=== PATIENT | female | born 1955 | race Caucasian/White ===

== ENCOUNTER 2019-01-08 11:01 | Inpatient (IN) | payer BC ==
[2019-01-08] MEDS ORDERED: Albuterol 0.083% 2.5 MG/3 ML Neb Soln NEB PRN (12:16)
[2019-01-08] MEDS ORDERED: Polyethylene Glycol 3350 Powder 17 GM Packet PO PRN (12:16)
[2019-01-08] MEDS ORDERED: Ondansetron 4 MG/2 ML SDV IV PRN (12:16)
[2019-01-08] MEDS ORDERED: Acetaminophen 325 MG Tab PO PRN (12:16)
[2019-01-08] MEDS: Piperacillin/Tazobactam/Dext 3.375 GM in Premix Bag 1 BAG IV SCH ×3 (12:41→23:34)
[2019-01-08] MEDS ORDERED: Iopamidol 612 MG/ML 100 ML Bottle IV ONE (12:52)
[2019-01-08] MEDS ORDERED: Vancomycin 1 GM SDV IV SCH (13:00)
[2019-01-08] MEDS ORDERED: Nicotine Polacrilex 2 MG Gum CHEW PRN (13:57)
[2019-01-08] MEDS ORDERED: Sodium Chloride 0.9% 10 ML Syringe FLUSH PRN (14:32)
[2019-01-08] MEDS: Nicotine 21 MG/24 Hr Patch TRDERM SCH (14:45)
[2019-01-08] MEDS ORDERED: Iopamidol 612 MG/ML 100 ML Bottle IV SCH (14:45)
[2019-01-08] MEDS ORDERED: Sodium Chloride 0.9% 80 ML IV SCH (14:45)
[2019-01-08] MEDS: oxyCODONE 5 MG Tab PO PRN ×3 (15:13→23:34)
[2019-01-08] MEDS: Sodium Chloride 0.9% 75 ML IV SCH (15:22)
[2019-01-08] MEDS: Sodium Chloride 0.9% 10 ML Syringe FLUSH PRN (15:22)
--- NOTE | 2019-01-08 16:42 | CT ---
Chest w Cont CLINICAL HISTORY: Recurrent effusion, fever, dyspnea TECHNIQUE: Axial scans were obtained from the thoracic inlet to the lung bases following IV infusion of iodinated contrast. Auto dosage reduction and iterative reconstruction techniques employed. COMPARISON: 01/02/2019. FINDINGS: Patient has a small right pleural effusion which has diminished since the 01/03/2019 study. There is persistent the airspace disease versus the masslike density in the right perihilar region. There is some diffuse right the upper lobe reticular thickening. There is underlying COPD with some subpleural bleb formation. There is some compressive atelectasis in the right lung base. There is some pericarinal lymph nodes. Patient is a small ventral hernia. IMPRESSION: Decrease in right pleural effusion since prior study Improved aeration in the right lung base. There is persistent the mass or consolidation in the right perihilar region. Central lower attenuation could represent some necrosis
[2019-01-08] MEDS ORDERED: Ibuprofen Susp 100 MG/5 ML 5 ML UD Cup PO PRN (18:13)
--- NOTE | 2019-01-08 18:38 | PCM.HP.2 ---
H&P History of Present Illness - General Date of Service: 01/08/19 Admit Problem/Dx: Admission Diagnosis/Problem Admission Diagnosis/Problem Hypoxia Source of Information: Patient, Family, Old Records, Provider, RN Notes Reviewed History Limitations: Reports: No Limitations - History of Present Illness Initial Comments - Free Text/Narative: Ms. Dick is a 63-year-old woman who is admitted as a direct admission from the clinic with recurrent right pleural effusion, increased cough and shortness of breath. She was hospitalized at this facility last week with similar symptoms. At that time she was noted to have a large right pleural effusion and did undergo thoracentesis. Results from thoracentesis were consistent with a transudate, cultures were negative. It was felt likely that this was a parapneumonic effusion, she was encouraged to remain hospitalized for further IV antibiotic therapy but refused. She was discharged to home on a one-week course of oral levofloxacin. She did well until yesterday when she noted recurrent symptoms of shortness of breath right lateral chest pain and increase in cough. Chest x-ray obtained at the clinic shows recurrent pleural effusion with a modest elevation in white blood cell count. After admission here oxygenation is adequate on room air. CT scan of the chest does show small recurrent plural effusion, question of a perihilar mass versus infiltrate. - Related Data Allergies/Adverse Reactions: Allergies Allergy/AdvReac Type Severity Reaction Status Date / Time Sulfa (Sulfonamide Allergy Cannot Verified 01/08/19 11:49 Antibiotics) Remember metronidazole [From Flagyl] AdvReac Mild Dizziness Verified 01/08/19 11:49 Metronidazole HCl AdvReac Dizziness Verified 01/08/19 11:49 [From Flagyl] minocycline AdvReac Diaphoresis Verified 01/08/19 11:49 Home Medications: Home Meds Methimazole [Tapazole] 5 - 10 mg PO ASDIRECTED 01/01/13 [History] Calc/D3/Mag/Zn/[place] [Calcium 600 MG Plus Vit D] 1 each PO DAILY 01/02 [History] Levofloxacin 750 mg PO Q24H #7 tablet 01/03/19 [Rx] Past Medical History Other Respiratory History: HAS NOT HAD RESPIRATORY PROBLEMS UNTIL RECENTLY Gastrointestinal History: Reports: Diverticulosis [employer] History: Reports: Endocrine/Metabolic History: Reports: Hyperthyroidism Oncologic (Cancer) History: Reports: Basal Cell Carcinoma - Infectious Disease History Infectious Disease History: Reports: Chicken Pox, Measles - Past Surgical History Respiratory Surgical History: Reports: Thoracentesis GI Surgical History: Reports: Colon Social & Family History - Family History Family Medical History: Noncontributory - Tobacco Use Smoking Status *Q: Current Every Day Smoker Years of Tobacco use: 45 Packs/Tins Daily: 1 - Caffeine Use Caffeine Use: Reports: Coffee - Recreational Drug Use Recreational Drug Use: Yes H&P Review of Systems - Review of Systems: Review Of Systems: See Below General: Reports: Malaise, Weakness, Decreased Appetite. Denies: Fever, Chills HEENT: Reports: No Symptoms Pulmonary: Reports: Shortness of Breath, Cough. Denies: Wheezing, Pleuritic Chest Pain, Sputum, Hemoptysis Cardiovascular: Reports: Dyspnea on Exertion. Denies: Chest Pain, Palpitations , Orthopnea, PND, Edema, Lightheadedness, Syncope Gastrointestinal: Reports: No Symptoms Genitourinary: Reports: No Symptoms Musculoskeletal: Reports: No Symptoms Skin: Reports: No Symptoms Psychiatric: Reports: No Symptoms Neurological: Reports: Headache. Denies: Confusion, Dizziness, Numbness, Trouble Speaking, Difficulty Walking, Weakness Hematologic/Lymphatic: Reports: No Symptoms Immunologic: Reports: No Symptoms Exam - Exam Exam: See Below - Vital Signs Vital Signs: Last Vital Signs Temp 97.9 F 01/08/19 16:00 Pulse 85 01/08/19 11:50 Resp 23 H 01/08/19 16:00 BP 140/81 01/08/19 16:00 Pulse Ox 96 01/08/19 17:05 Weight: 138 lb - Exam Quality Assessment: DVT Prophylaxis. No: Supplemental Oxygen General: Alert, Oriented, Cooperative, Mild Distress HEENT: Conjunctiva Clear, Hearing Intact, Mucosa Moist & [place], Normal Nasal Septum, Posterior Pharynx Clear, Pupils Equal Neck: Supple, Trachea Midline, +2 Carotid Pulse wo Bruit Lungs: Decreased Breath Sounds (Right base), Rhonchi. No: Crackles, Rales, Wheezing Cardiovascular: Regular Rate, Regular Rhythm, Normal S1, Normal S2. No: Systolic Murmur, Diastolic Murmur GI/Abdominal Exam: Soft, Non-Tender, No Organomegaly, No Distention Back Exam: Normal Inspection, Full Range of Motion Extremities: Non-Tender, No Pedal Edema Skin: Warm, Dry, Intact Neurological: Cranial Nerves Intact, Strength Equal Bilateral, Normal Speech, Normal Tone, Sensation Intact Neuro Extensive - Mental Status: Alert, Oriented x3, Normal Mood/Affect, Normal Cognition, Memory Intact - Patient Data Lab Results Last 24 hrs: Laboratory Results - last 24 hr 01/08/19 01/08/19 Range/Units 12:52 12:52 WBC 10.6 (4.5-11.0) K/uL RBC 4.72 (3.30-5.50) M/uL Hgb 15.2 H (12.0-15.0) g/dL Hct 47.5 (36.0-48.0) % MCV 101 H (80-98) fL MCH 32 H (27-31) pg MCHC 32 (32-36) % Plt Count 397 (150-400) K/uL Neut % (Auto) 73 H (36-66) % Lymph % (Auto) 11 L (24-44) % [place] % (Auto) 14 H (2-6) % Eos % (Auto) 2 (2-4) % Baso % (Auto) 0 (0-1) % Sodium 142 (140-148) mmol/L Potassium 3.5 L (3.6-5.2) mmol/L Chloride 103 (100-108) mmol/L Carbon Dioxide 31 (21-32) mmol/L Anion Gap 11.5 (5.0-14.0) mmol/L BUN 12 (7-18) mg/dL Creatinine 0.6 (0.6-1.0) mg/dL Est Cr Clr Drug Dosing 94.84 mL/min Estimated GFR (MDRD) > 60 (>60) Glucose 94 (74-106) mg/dL Calcium 9.3 (8.5-10.1) mg/dL Magnesium 1.8 (1.8-2.4) mg/dL Total Bilirubin 0.2 D (0.2-1.0) mg/dL AST 18 (15-37) U/L ALT 21 (12-78) U/L Alkaline Phosphatase 102 (46-116) U/L C-Reactive Protein 6.63 H (0.0-0.3) mg/dL Total Protein 6.5 (6.4-8.2) g/dL Albumin 2.1 L (3.4-5.0) g/dL Globulin 4.4 H (2.3-3.5) g/dL Albumin/Globulin Ratio 0.5 L (1.2-2.2) Result Diagrams: 01/08/19 12:52 01/08/19 12:52 *Q Meaningful Use (ADM) - VTE *Q VTE Pharmacological Contraindications *Q: Patient Scheduled Surgery - VTE Risk Assess *Q Each Risk Factor Represents 1 Point: Serious lung disease including pneumonia Total Score 1 Point Risk Factors: 1 Each Risk Factor Represents 2 Points: Age 60 - 74 Years Total Score 2 Point Risk Factors: 2 Each Risk Factor Represents 3 Points: None Total Score 3 Point Risk Factors: 0 Each Risk Factor Represents 5 Points: None Total Score 5 Point Risk Factors: 0 Venous Thromboembolism Risk Factor Score *Q: 3 Problem List Initiated/Reviewed/Updated: Yes Orders Last 24hrs: Active Orders 24 hr Category Date Time Status Patient Status [ADT] Routine ADT 01/08/19 12:16 Active Ambulate [RC] QID Care 01/08/19 12:16 Active Cardiac Monitoring [RC] .As Directed Care 01/08/19 12:18 Active Height and Weight [RC] DAILY Care 01/08/19 12:16 Active Intake and Output [RC] QSHIFT Care 01/08/19 12:16 Active Notify Provider Consults [RC] ASDIRECTED Care 01/08/19 18:14 Active Notify Provider Vital Signs [RC] ASDIRECTED Care 01/08/19 12:16 Active Oxygen Therapy [RC] PRN Care 01/08/19 12:16 Active Pulse Oximetry [RC] CONTINUOUS Care 01/08/19 12:18 Active RT Aerosol Therapy [RC] ASDIRECTED Care 01/08/19 12:21 Active Up With Assistance [RC] ASDIRECTED Care 01/08/19 12:16 Active Up to Chair [RC] QID Care 01/08/19 12:16 Active VTE/DVT Education [RC] Per Unit Routine Care 01/08/19 12:16 Active Vital Signs [RC] Q4H Care 01/08/19 12:16 Active Consult to Physician [CONS] Routine Cons 01/08/19 18:13 Ordered Regular Diet [DIET] Diet 01/08/19 Lunch Active Brain w Cont [MR] Urgent Exams 01/09/19 08:00 Ordered US Guidance Thoracentesis NC [US] Urgent Exams 01/09/19 07:00 Ordered US Guidance Thoracentesis NC [US] Urgent Exams 01/09/19 07:00 Stop Req CULTURE BLOOD [BC] Stat Lab 01/08/19 12:52 Received CULTURE BLOOD [BC] Stat Lab 01/08/19 12:52 Received CULTURE RESPIRATORY + SMEAR [RM] Stat Lab 01/08/19 12:16 Ordered Acetaminophen [Tylenol] Med 01/08/19 12:16 Active 650 mg PO Q4H PRN Albuterol [Proventil Neb Soln] Med 01/08/19 12:16 Active 2.5 mg NEB Q4H PRN Ibuprofen [Motrin 100 MG/5 ML Susp] Med 01/08/19 18:13 Ordered 600 mg PO Q6H PRN Nicotine Polacrilex [Nicorelief] Med 01/08/19 13:57 Active 2 mg CHEW Q1H PRN Nicotine [Habitrol] Med 01/08/19 14:00 Active 21 mg TRDERM DAILY Ondansetron [Zofran] Med 01/08/19 12:16 Active 4 mg IV Q4H PRN Piperacillin/Tazobactam/Dext [Zosyn in Dextrose Iso- Med 01/08/19 12:30 Active Osmotic 3.375 GM] 3.375 gm Premix Bag 1 bag IV Q6H Polyethylene Glycol 3350 [MiraLAX] Med 01/08/19 12:16 Active 17 gm PO DAILY PRN Sodium Chloride 0.9% [Saline Flush] Med 01/08/19 12:16 Active 10 ml FLUSH ASDIRECTED PRN Vancomycin 1 gm Med 01/09/19 02:00 Active Sodium Chloride 0.9% [Normal Saline] 250 ml IV Q12H methIMAzole Med 01/09/19 09:00 Active 5 mg PO DAILY oxyCODONE Med 01/08/19 12:16 Active 5 mg PO Q4H PRN Blood Culture x2 Reflex Set [OM.PC] Stat Oth 01/08/19 12:21 Ordered Saline Lock Insert [OM.PC] Routine Oth 01/08/19 12:16 Ordered Sequential Compression Device [OM.PC] Per Unit Routine Oth 01/08/19 12:18 Ordered VTE Pharmacological Contraindications [AST] Per Unit Oth 01/08/19 12:16 Ordered Routine Resuscitation Status Routine Resus Stat 01/08/19 12:16 Ordered Medication Orders Acetaminophen (Tylenol) 650 mg PO Q4H PRN PRN Reason: Pain (Mild 1-3)/fever Albuterol (Proventil Neb Soln) 2.5 mg NEB Q4H PRN PRN Reason: Shortness Of Breath/wheezing Piperacillin/Tazobactam/ (Dextrose 3.375 gm/ Premix) 50 mls @ 100 mls/hr IV Q6H [facility] Last Admin: 01/08/19 12:41 Dose: 100 mls/hr Vancomycin HCl 1 gm/ Sodium (Chloride) 250 mls @ 167 mls/hr IV Q12H [facility] Ibuprofen (Motrin 100 Mg/5 Ml Susp) 600 mg PO Q6H PRN PRN Reason: Pain Methimazole (Methimazole) 5 mg PO DAILY [facility] Nicotine (Habitrol) 21 mg TRDERM DAILY [facility] Last Admin: 01/08/19 14:45 Dose: 21 mg Nicotine Polacrilex (Nicorelief) 2 mg CHEW Q1H PRN PRN Reason: Other Ondansetron HCl (Zofran) 4 mg IV Q4H PRN PRN Reason: Nausea/Vomiting Oxycodone HCl (Oxycodone) 5 mg PO Q4H PRN PRN Reason: Pain (moderate 4-6) Last Admin: 01/08/19 15:13 Dose: 5 mg Polyethylene Glycol (Miralax) 17 gm PO DAILY PRN PRN Reason: Constipation Sodium Chloride (Saline Flush) 10 ml FLUSH ASDIRECTED PRN PRN Reason: Keep Vein Open Last Admin: 01/08/19 15:22 Dose: 10 ml Assessment/Plan Comment:: ASSESSMENT AND PLAN RIGHT PLEURAL EFFUSION-associated with infiltrate versus mass right perihilar region. No significant fevers, normal white blood cell count. -Blood cultures pending -IV vancomycin and Zosyn, pending culture results -Ultrasound in a.m. to localize effusion -Consult Dr. Blackman for possible thoracentesis RIGHT LUNG PNEUMONIA VERSUS MASS -Management as above NEW HEADACHES-present for the past 2 weeks, no prior history of headaches -MRI of the brain with contrast MAINTENANCE ISSUES -DVT prophylaxis; scuds, hold on anticoagulation because of possible thoracentesis -GI prophylaxis; not indicated -Enrique catheter; not indicated -Nutrition; regular diet -Nicotine dependence; nicotine patch and gum as needed CODE STATUS-FULL CODE ADMISSION STATUS-patient will be admitted to inpatient status, expect at least a 2 night hospital stay for evaluation and management of problems as outlined above. At the time of this admission I do not reasonably expected evaluation and management of this problem will require more than a 96 hour hospital stay. DISPOSITION-anticipate discharge to home after the hospital stay. PRIMARY CARE PROVIDER-René Au - Mortality Measure Prognosis:: Good
[2019-01-08] MEDS: Codeine/guaiFENesin 100mg-10 MG/5 ML Syrup 10 ML Cup PO PRN (23:34)
[2019-01-09] MEDS: Ibuprofen 600 MG Tab PO PRN ×2 (04:00→12:34)
[2019-01-09] MEDS: Codeine/guaiFENesin 100mg-10 MG/5 ML Syrup 10 ML Cup PO PRN ×4 (04:00→20:08)
[2019-01-09] MEDS: Piperacillin/Tazobactam/Dext 3.375 GM in Premix Bag 1 BAG IV SCH ×3 (06:27→17:43)
[2019-01-09] MEDS: oxyCODONE 5 MG Tab PO PRN ×2 (06:29→20:07)
[2019-01-09] MEDS: Nicotine 21 MG/24 Hr Patch TRDERM SCH (08:51)
[2019-01-09] MEDS: Methimazole 5 MG Tab PO SCH (08:52)
[2019-01-09] MEDS ORDERED: HYDROmorphone 1 MG/ML Syringe IV ONE ×2 (09:00→14:00)
[2019-01-09] MEDS ORDERED: Potassium Chloride 20 MEQ Tab.ER PO ONE (10:00)
[2019-01-09] MEDS ORDERED: Gadoteridol 279.3 MG/ML 15 ML SDV IV SCH (12:00)
--- NOTE | 2019-01-09 12:08 | CRLMR ---
INDICATION: Headaches, possible lung mass. TECHNIQUE: Brain MRI with contrast. The following sequences were obtained: Sagittal T1 weighted sequence. DWI and ADC mapping sequences. Axial FLAIR and DIPTI T2 weighted sequences. GRE T2* sequence. Axial and coronal T1 weighted post-contrast sequences. 15 cc of ProHance gadolinium based contrast agent was used. COMPARISON: None. FINDINGS: No acute infarct or hemorrhage. No pathologic intracranial enhancement. Scattered small foci of T2 hyperintensity throughout the supratentorial white matter nonspecific but statistically most likely reflects chronic small vessel ischemic disease. No mass effect or herniation. No hydrocephalus or extra-axial collections. The pituitary gland, parasellar structures and optic chiasm are normal. Posterior fossa is normal. All the major intracranial vascular structures demonstrate normal flow-related signal. Tortuous vertebrobasilar system. The orbital contents are normal. No calvarial or skull base marrow signal abnormality. Heterogenous signal secretions throughout the right sphenoid sinus, with peripheral mucosal thickening. No extracranial soft tissue findings. IMPRESSION: 1. No acute intracranial abnormalities, including no evidence of acute infarction, intracranial hemorrhage or mass effect. 2. No mass or other finding to suggest intracranial metastatic disease. 3. Scattered chronic small vessel ischemic disease throughout the supratentorial white matter. 4. Heterogenous signal secretions throughout the right sphenoid sinus, with peripheral mucosal thickening. Dictated by Cash Mustafa MD @ Jan 09 2019 12:00PM Signed by Dr. Cash Mustafa @ Jan 09 2019 12:06PM
[2019-01-09] MEDS ORDERED: Iopamidol 612 MG/ML 100 ML Bottle IV ONE (14:04)
[2019-01-09] MEDS ORDERED: Sodium Chloride 0.9% 75 ML IV SCH (14:15)
[2019-01-09] MEDS: Sodium Chloride 0.9% 75 ML IV SCH (14:22)
[2019-01-09] MEDS: Sodium Chloride 0.9% 10 ML Syringe FLUSH PRN (14:22)
--- NOTE | 2019-01-09 14:56 | CRLCT ---
INDICATION: Follow-up of a thoracentesis. COMPARISON: CT chest 01/08/2019. TECHNIQUE: CT thoracic inlet through the adrenal glands obtained with IV contrast. Contrast: 100 cc of Isovue IV. Please note that all CT scans at this facility use dose modulation, iterative reconstruction, and/or weight-based dosing when appropriate to reduce radiation dose to as low as reasonably achievable. FINDINGS: Lungs: Paraseptal emphysematous changes are seen in both lung apices. Right middle lobe consolidation or mass is seen, measuring 5.4 x 4.9 centimeters. This is unchanged from the prior study. Moderate right-sided pleural effusion is not significantly changed from the prior study. Right lower lobe passive atelectasis is unchanged. Left lung is clear. Mediastinum: Heart size is normal. There is no evidence of right or left hilar adenopathy. Soft tissues: Bilateral breast implants are seen, with implant calcification. Bones: There is a compression fracture at the level of T6. Remaining vertebral body heights are maintained. Upper abdomen: Visualized portions of the liver, spleen, pancreas, and stomach are normal. IMPRESSION: 1. Moderate right-sided pleural effusion, overall no significant change from comparison chest CT 01/08/2019. 2. Large right middle lobe consolidation or mass. Differential diagnosis includes pneumonia and malignancy. CT-guided biopsy or short-term follow-up could be performed if clinically indicated. This is unchanged from the prior study. 3. Compression fracture T6. Remaining vertebral bodies demonstrate normal mineralization normal height. Please note that all CT scans at this facility use dose modulation, iterative reconstruction, and/or weight-based dosing when appropriate to reduce radiation dose to as low as reasonably achievable. Dictated by Eduardo Strange MD @ Jan 09 2019 2:43PM Signed by Dr. Eduardo Strange @ Jan 09 2019 2:53PM
--- NOTE | 2019-01-09 16:31 | HP ---
HISTORY OF PRESENT ILLNESS: Bharati is being seen for consultation in regard to her hypoxia. She will be needing a thoracentesis for a large right pleural effusion. She was admitted as a direct admit from the clinic for recurrent right pleural effusion, increased cough, and shortness of breath. She is seen in consultation at the request of Akbar Vargas MD. ALLERGIES: SULFA, FLAGYL, AND MINOCYCLINE. PAST MEDICAL HISTORY: Diverticulosis, hyperthyroidism, and basal cell carcinoma. PAST SURGICAL HISTORY: She has had a prior thoracentesis. FAMILY HISTORY: Noncontributory. Smokes 1 pack a day for 45 years. Drinks caffeine. REVIEW OF SYSTEMS: GENERAL: Reports weakness, decreased appetite. HEENT: Negative. LUNGS: Short of breath, cough. Has had no wheezing, chest pain. CARDIOVASCULAR: Short of breath on exertion. Denies any chest pain, shortness of breath. GI: Negative. : Negative. MUSCULOSKELETAL: No joint pain or swelling. SKIN: No rash. PSYCHIATRIC: No depression, anxiety, or insomnia. NEUROLOGIC: Reports headaches which are chronic. Denies any other symptoms. Remainder of review of systems negative for any pertinent positives and negatives. OBJECTIVE: GENERAL: Bharati Dick is a pleasant 63-year-old female. VITAL SIGNS: Height is 5 feet 10 inches, weight is 138 pounds. TPR is 96.8, 80, 20. Blood pressure 114/88. HEENT: Negative. NECK: Supple. HEART: Regular rate and rhythm. LUNGS: Revealed decreased breath sounds in the right. GI: Negative. Soft and nontender. EXTREMITIES: Without peripheral edema. NEUROLOGIC: Cranial nerves 2 through 12 intact. PSYCHIATRIC: Mood and affect appropriate. ASSESSMENT: 1. Right pleural effusion. 2. Right lung pneumonia versus mass. 3. New headaches. PLAN: Dr. Blackman to do thoracentesis. Case to follow at bedside. Dilaudid 1 mg IV prior to thoracentesis. We will evaluate p.r.n. or in a.m. Jessica Parks PA-C /[id number]
--- NOTE | 2019-01-09 20:00 | PCM.PN ---
- General Info Date of Service: 01/09/19 Subjective Update: Ms. Dick has been stable since admission, shortness of breath and cough have improved. Overall though she continues to feel fairly weak. No significant temperature elevations have been noted. Thoracentesis performed earlier today by Dr. Blackman resulted only small amount of fluid removed at 250 mL. Fungal and Gram stain's obtained and the fluid are negative. Follow-up CT scan obtained after thoracentesis unfortunately provided no new information. There is residual pleural fluid as well as mass versus infiltrate noted on previous CT scan. Functional Status: Reports: Tolerating Diet, Ambulating, Urinating - Review of Systems General: Reports: Weakness. Denies: Fever, Chills Pulmonary: Reports: Shortness of Breath, Cough. Denies: Pleuritic Chest Pain, Hemoptysis, Wheezing Cardiovascular: Reports: Dyspnea on Exertion. Denies: Chest Pain, Palpitations , Orthopnea, PND, Edema, Lightheadedness Gastrointestinal: Reports: No Symptoms - Patient Data Vitals - Most Recent: Last Vital Signs Temp 96.8 F 01/09/19 19:00 Pulse 75 01/09/19 19:00 Resp 16 01/09/19 19:00 BP 119/70 01/09/19 19:00 Pulse Ox 95 01/09/19 19:00 Weight - Most Recent: 136 lb 10.986 oz I&O - Last 24 Hours: Intake & Output 01/09/19 01/09/19 01/09/19 06:59 14:59 22:59 Intake Total 850 350 50 Output Total 350 Balance 850 0 50 Bakari Results Last 24 Hours: Microbiology 01/09/19 14:12 Gram Stain - Final Thoracentesis Fluid - Right 01/09/19 14:11 HAKAN Preparation - Final Other - Pleural Cavity, Unspecified 01/08/19 12:52 Aerobic Blood Culture - Preliminary Blood - Arm, Right NO GROWTH AFTER 1 DAY Anaerobic Blood Culture - Preliminary NO GROWTH AFTER 1 DAY 01/08/19 12:52 Aerobic Blood Culture - Preliminary Blood - Arm, Right NO GROWTH AFTER 1 DAY Anaerobic Blood Culture - Preliminary NO GROWTH AFTER 1 DAY Med Orders - Current: Current Medications Acetaminophen (Tylenol) 650 mg PO Q4H PRN PRN Reason: Pain (Mild 1-3)/fever Albuterol (Proventil Neb Soln) 2.5 mg NEB Q4H PRN PRN Reason: Shortness Of Breath/wheezing Guaifenesin/Codeine Phosphate (Robitussin Ac) 10 ml PO Q4H PRN PRN Reason: Cough Last Admin: 01/09/19 13:24 Dose: 10 ml Piperacillin/Tazobactam/ (Dextrose 3.375 gm/ Premix) 50 mls @ 100 mls/hr IV Q6H [facility] Last Admin: 01/09/19 17:43 Dose: 100 mls/hr Vancomycin HCl 1 gm/ Sodium (Chloride) 250 mls @ 167 mls/hr IV Q12H [facility] Last Admin: 01/09/19 14:51 Dose: 167 mls/hr Ibuprofen (Motrin) 600 mg PO Q6H PRN PRN Reason: Pain (moderate 4-6) Last Admin: 01/09/19 12:34 Dose: 600 mg Methimazole (Methimazole) 5 mg PO DAILY [facility] Last Admin: 01/09/19 08:52 Dose: 5 mg Nicotine (Habitrol) 21 mg TRDERM DAILY [facility] Last Admin: 01/09/19 08:51 Dose: 21 mg Nicotine Polacrilex (Nicorelief) 2 mg CHEW Q1H PRN PRN Reason: Other Ondansetron HCl (Zofran) 4 mg IV Q4H PRN PRN Reason: Nausea/Vomiting Oxycodone HCl (Oxycodone) 5 mg PO Q4H PRN PRN Reason: Pain (moderate 4-6) Last Admin: 01/09/19 06:29 Dose: 5 mg Polyethylene Glycol (Miralax) 17 gm PO DAILY PRN PRN Reason: Constipation Sodium Chloride (Saline Flush) 10 ml FLUSH ASDIRECTED PRN PRN Reason: Keep Vein Open Last Admin: 01/09/19 14:22 Dose: 10 ml Discontinued Medications Gadoteridol (Prohance) 15 ml IV .A DIRECTED [facility] Stop: 01/09/19 13:00 Last Admin: 01/09/19 11:46 Dose: 15 ml Hydromorphone HCl (Dilaudid) 1 mg IV ONCALL ONE Stop: 01/09/19 14:01 Last Admin: 01/09/19 15:41 Dose: Not Given Sodium Chloride (Normal Saline) 75 mls @ 3 mls/sec IV ASDIRECTED [facility] Stop: 01/08/19 13:01 Last Admin: 01/09/19 14:22 Dose: 3 mls/sec Vancomycin HCl 1.25 gm/ Sodium (Chloride) 250 mls @ 167 mls/hr IV ONETIME ONE Stop: 01/08/19 15:29 Last Admin: 01/08/19 14:41 Dose: 167 mls/hr Sodium Chloride (Normal Saline) 75 mls @ 3 mls/sec IV ASDIRECTED [facility] Stop: 01/09/19 14:16 Ibuprofen (Motrin 100 Mg/5 Ml Susp) 600 mg PO Q6H PRN PRN Reason: Pain Last Admin: 01/08/19 20:28 Dose: 600 mg Iopamidol (Isovue-300 (61%)) 100 ml IV . DIRECTED ONE Stop: 01/08/19 12:53 Last Admin: 01/08/19 15:23 Dose: 100 ml Iopamidol (Isovue-300 (61%)) 100 ml IV . DIRECTED ONE Stop: 01/09/19 14:05 Last Admin: 01/09/19 14:22 Dose: 100 ml Potassium Chloride (Klor-Con M20) 40 meq PO ONETIME ONE Stop: 01/09/19 10:01 Last Admin: 01/09/19 09:38 Dose: 40 meq Vancomycin HCl (Vancomycin) 1 gm IV .PHARMACY TO DOSE [facility] Stop: 01/08/19 13:01 - Exam Quality Assessment: Supplemental Oxygen, DVT Prophylaxis General: Alert, Oriented, Cooperative, Mild Distress Lungs: Clear to Auscultation, Normal Respiratory Effort, Decreased Breath Sounds (Right base) Cardiovascular: Regular Rate, Regular Rhythm, No Murmurs GI/Abdominal Exam: Soft, Non-Tender, No Organomegaly, No Distention Extremities: Non-Tender, No Pedal Edema - Problem List Review Problem List Initiated/Reviewed/Updated: Yes - My Orders Last 24 Hours: My Active Orders 01/08/19 20:39 Codeine/guaiFENesin [Robitussin AC] 10 ml PO Q4H PRN 01/08/19 20:41 Ibuprofen [Motrin] 600 mg PO Q6H PRN 01/09/19 02:00 Vancomycin 1 gm Sodium Chloride 0.9% [Normal Saline] 250 ml IV Q12H 01/09/19 07:00 US Guidance Thoracentesis NC [US] Urgent 01/09/19 09:00 methIMAzole 5 mg PO DAILY 01/09/19 14:11 CULTURE FUNGAL [MYC] Routine 01/10/19 05:11 POTASSIUM,K [CHEM] AM - Plan Plan:: ASSESSMENT AND PLAN RIGHT PLEURAL EFFUSION-associated with infiltrate versus mass right perihilar region. No significant fevers, normal white blood cell count. -Blood cultures pending -IV vancomycin and Zosyn, pending culture results -Plan for CT-guided needle biopsy of right lung mass RIGHT LUNG PNEUMONIA VERSUS MASS -Management as above NEW HEADACHES-present for the past 2 weeks, no prior history of headaches. MRI obtained today shows no evidence of mass or metastatic disease. MAINTENANCE ISSUES -DVT prophylaxis; scuds -GI prophylaxis; not indicated -Enrique catheter; not indicated -Nutrition; regular diet -Nicotine dependence; nicotine patch and gum as needed CODE STATUS-FULL CODE ADMISSION STATUS-patient will be admitted to inpatient status, expect at least a 2 night hospital stay for evaluation and management of problems as outlined above. At the time of this admission I do not reasonably expected evaluation and management of this problem will require more than a 96 hour hospital stay. DISPOSITION-anticipate discharge to home after the hospital stay. PRIMARY CARE PROVIDER-René Au
[2019-01-10] MEDS: Piperacillin/Tazobactam/Dext 3.375 GM in Premix Bag 1 BAG IV SCH ×3 (00:19→11:32)
[2019-01-10] MEDS: oxyCODONE 5 MG Tab PO PRN ×4 (00:29→13:07)
[2019-01-10] MEDS: Codeine/guaiFENesin 100mg-10 MG/5 ML Syrup 10 ML Cup PO PRN ×4 (00:29→13:07)
[2019-01-10] MEDS: Nicotine 21 MG/24 Hr Patch TRDERM SCH (08:09)
[2019-01-10] MEDS ORDERED: Methimazole 5 MG Tab PO SCH (09:30)
[2019-01-10] MEDS: Methimazole 5 MG Tab PO SCH (09:31)
[2019-01-10 11:35] VITALS: BP 117/63; PULSE 86
--- NOTE | 2019-01-10 12:13 | PCM.DCSUM1 ---
Discharge Summary - Hospital Course Brief History: Ms. Dick is a 63-year-old woman who was admitted as a direct admission from the walk-in clinic with increased shortness of breath, cough, and weakness secondary to right pleural effusion and right lung mass/infiltrate. - Discharge Data Discharge Date: 01/10/19 Discharge Disposition: Home, Self-Care 01 Condition: Fair - Referral to Home Health Primary Care Physician: René Au NP - Discharge Diagnosis/Problem(s) (1) Lung mass SNOMED Code(s): 655272729 ICD Code: R91.8 - OTHER NONSPECIFIC ABNORMAL FINDING OF LUNG FIELD Status: Acute Current Visit: Yes (2) S/P thoracentesis SNOMED Code(s): 159176410, 40287387, 564933417 ICD Code: Z98.890 - OTHER SPECIFIED POSTPROCEDURAL STATES Status: Acute Current Visit: No (3) Pneumonia involving right lung SNOMED Code(s): 378841002 ICD Code: J18.9 - PNEUMONIA, UNSPECIFIED ORGANISM Status: Acute Current Visit: No Qualifiers: Pneumonia type: due to unspecified organism Lung location: unspecified part of lung Qualified Code(s): J18.9 - Pneumonia, unspecified organism (4) Pleural effusion on right SNOMED Code(s): 11039369 ICD Code: J90 - PLEURAL EFFUSION, NOT ELSEWHERE CLASSIFIED Status: Acute Current Visit: No - Patient Summary/Data Consults: Consultations 01/08/19 18:13 Consult to Physician [CONS] Routine Consulting Provider: Ignacio Blackman Courtesy Call Completed to Consulting Physician: Yes Reason for Consult: R Pleural effusion Hospital Course: Ms. Dick is a 63-year-old woman who is admitted as a direct admission from the clinic with recurrent right pleural effusion, increased cough and shortness of breath. She was hospitalized at this facility last week with similar symptoms. At that time she was noted to have a large right pleural effusion and did undergo thoracentesis. Results from thoracentesis were consistent with a transudate, cultures were negative. It was felt likely that this was a parapneumonic effusion, she was encouraged to remain hospitalized for further IV antibiotic therapy but refused. She was discharged to home on a one-week course of oral levofloxacin. She did well until yesterday when she noted recurrent symptoms of shortness of breath right lateral chest pain and increase in cough. Chest x-ray obtained at the clinic shows recurrent pleural effusion with a modest elevation in white blood cell count. After admission here oxygenation is adequate on room air. CT scan of the chest does show small recurrent plural effusion, question of a perihilar mass versus infiltrate. On admission blood cultures were obtained and she was started on IV antibiotic therapy with vancomycin and Zosyn. She had no significant temperature elevations during the hospital stay and her white blood cell count did normalize from the mild elevation noted at the clinic. Surgical consult was obtained from Dr. Blackman and after ultrasound localization of the pleural effusion a thoracentesis was performed. 250 mL of somewhat bloody fluid were removed. Cultures from fluid were negative at the time of discharge. Follow-up CT scan of the chest was obtained after thoracentesis but showed no new or significant findings other than what had been noted previously. Did require use of oxygen during the hospital stay. On the day of discharge she had an oxygen saturation of 85% on room air. Home oxygen 2 L/m via nasal cannula will be ordered in addition to portable oxygen device. CT guided fine needle biopsy of the right lung mass will be scheduled as an outpatient, with follow-up with Dr. Blackman. Activity will be as tolerated and she will resume her usual diet. She will be discharged to home on an additional 5 days of oral antibiotic therapy with Omnicef and doxycycline. Probiotic therapy will also be ordered twice daily. She notes increasing shortness of breath or cough she will present to the emergency department for further evaluation. - Patient Instructions Diet: Usual Diet as Tolerated Activity: As Tolerated Other/Special Instructions: Arrange for home oxygen 2 L/m via nasal cannula with portable oxygen device. Please schedule CT directed fine-needle biopsy of right lung mass for January 15. Please schedule follow-up appointment with Dr. Blackman 2-3 days following lung biopsy. - Discharge Plan *PRESCRIPTION DRUG MONITORING PROGRAM REVIEWED*: Not Applicable *COPY OF PRESCRIPTION DRUG MONITORING REPORT IN PATIENT EMILIO: Not Applicable Prescriptions/Med Rec: Cefdinir [Omnicef] 300 mg PO BID #10 cap Codeine/guaiFENesin [Robitussin AC] 10 ml PO Q4H PRN #8 oz PRN Reason: Cough Doxycycline [Vibramycin] 100 mg PO BID #10 cap Lactobacillus Acidophilus [Acidophilus Lactobacilli] 1 each PO BID #60 capsule Nicotine [Habitrol] 21 mg TRDERM DAILY #30 patch oxyCODONE 5 mg PO Q4H PRN #30 tablet PRN Reason: Pain (Moderate 4-6) Home Medications: Home Meds Methimazole [Tapazole] 5 - 10 mg PO ASDIRECTED 01/01/13 [History] Calc/D3/Mag/Zn/Leobardo/Roverto/Bode [Calcium 600 MG Plus Vit D] 1 each PO DAILY 01/02 [History] Cefdinir [Omnicef] 300 mg PO BID #10 cap 01/10/19 [Rx] Codeine/guaiFENesin [Robitussin AC] 10 ml PO Q4H PRN #8 oz 01/10/19 [Rx] Doxycycline [Vibramycin] 100 mg PO BID #10 cap 01/10/19 [Rx] Lactobacillus Acidophilus [Acidophilus Lactobacilli] 1 each PO BID #60 capsule 01/10/19 [Rx] Nicotine [Habitrol] 21 mg TRDERM DAILY #30 patch 01/10/19 [Rx] oxyCODONE 5 mg PO Q4H PRN #30 tablet 01/10/19 [Rx] Oxygen Therapy Mode: Nasal Cannula Oxygen Flow Rate (L/min): 2 Maintain SpO2% greater than: 90 - Discharge Summary/Plan Comment DC Time >30 min.: No - Patient Data Vitals - Most Recent: Last Vital Signs Temp 98.8 F 01/10/19 11:34 Pulse 86 01/10/19 11:34 Resp 18 01/10/19 11:34 BP 117/63 01/10/19 11:34 Pulse Ox 96 01/10/19 11:34 Weight - Most Recent: 136 lb 10.986 oz I&O - Last 24 hours: Intake & Output 01/09/19 01/10/19 01/10/19 22:59 06:59 14:59 Intake Total 50 800 50 Output Total 450 550 300 Balance -400 250 -250 Lab Results - Last 24 hrs: Laboratory Results - last 24 hr 01/10/19 Range/Units 05:00 Potassium 3.7 (3.6-5.2) mmol/L AMANDEEP Results - Last 24 hrs: Microbiology 01/09/19 14:12 Gram Stain - Final Thoracentesis Fluid - Right Body Fluid Culture - Preliminary NO GROWTH AFTER 1 DAY 01/09/19 14:11 HAKAN Preparation - Final Other - Pleural Cavity, Unspecified 01/08/19 12:52 Aerobic Blood Culture - Preliminary Blood - Arm, Right NO GROWTH AFTER 1 DAY Anaerobic Blood Culture - Preliminary NO GROWTH AFTER 1 DAY 01/08/19 12:52 Aerobic Blood Culture - Preliminary Blood - Arm, Right NO GROWTH AFTER 1 DAY Anaerobic Blood Culture - Preliminary NO GROWTH AFTER 1 DAY Med Orders - Current: Current Medications Acetaminophen (Tylenol) 650 mg PO Q4H PRN PRN Reason: Pain (Mild 1-3)/fever Albuterol (Proventil Neb Soln) 2.5 mg NEB Q4H PRN PRN Reason: Shortness Of Breath/wheezing Guaifenesin/Codeine Phosphate (Robitussin Ac) 10 ml PO Q4H PRN PRN Reason: Cough Last Admin: 01/10/19 09:07 Dose: 10 ml Piperacillin/Tazobactam/ (Dextrose 3.375 gm/ Premix) 50 mls @ 100 mls/hr IV Q6H [facility] Last Admin: 01/10/19 11:32 Dose: 100 mls/hr Vancomycin HCl 1 gm/ Sodium (Chloride) 250 mls @ 167 mls/hr IV Q12H [facility] Last Admin: 01/10/19 01:52 Dose: 167 mls/hr Ibuprofen (Motrin) 600 mg PO Q6H PRN PRN Reason: Pain (moderate 4-6) Last Admin: 01/09/19 12:34 Dose: 600 mg Methimazole (Methimazole) 10 mg PO Q48H [facility] Last Admin: 01/10/19 10:37 Dose: 10 mg Methimazole (Methimazole) 5 mg PO Q48H [facility] Nicotine (Habitrol) 21 mg TRDERM DAILY [facility] Last Admin: 01/10/19 08:09 Dose: 21 mg Nicotine Polacrilex (Nicorelief) 2 mg CHEW Q1H PRN PRN Reason: Other Ondansetron HCl (Zofran) 4 mg IV Q4H PRN PRN Reason: Nausea/Vomiting Oxycodone HCl (Oxycodone) 5 mg PO Q4H PRN PRN Reason: Pain (moderate 4-6) Last Admin: 01/10/19 09:07 Dose: 5 mg Polyethylene Glycol (Miralax) 17 gm PO DAILY PRN PRN Reason: Constipation Sodium Chloride (Saline Flush) 10 ml FLUSH ASDIRECTED PRN PRN Reason: Keep Vein Open Last Admin: 01/09/19 14:22 Dose: 10 ml Discontinued Medications Gadoteridol (Prohance) 15 ml IV .A DIRECTED [facility] Stop: 01/09/19 13:00 Last Admin: 01/09/19 11:46 Dose: 15 ml Hydromorphone HCl (Dilaudid) 1 mg IV ONCALL ONE Stop: 01/09/19 14:01 Last Admin: 01/09/19 15:41 Dose: Not Given Sodium Chloride (Normal Saline) 75 mls @ 3 mls/sec IV ASDIRECTED [facility] Stop: 01/08/19 13:01 Last Admin: 01/09/19 14:22 Dose: 3 mls/sec Vancomycin HCl 1.25 gm/ Sodium (Chloride) 250 mls @ 167 mls/hr IV ONETIME ONE Stop: 01/08/19 15:29 Last Admin: 01/08/19 14:41 Dose: 167 mls/hr Sodium Chloride (Normal Saline) 75 mls @ 3 mls/sec IV ASDIRECTED [facility] Stop: 01/09/19 14:16 Ibuprofen (Motrin 100 Mg/5 Ml Susp) 600 mg PO Q6H PRN PRN Reason: Pain Last Admin: 01/08/19 20:28 Dose: 600 mg Iopamidol (Isovue-300 (61%)) 100 ml IV . DIRECTED ONE Stop: 01/08/19 12:53 Last Admin: 01/08/19 15:23 Dose: 100 ml Iopamidol (Isovue-300 (61%)) 100 ml IV . DIRECTED ONE Stop: 01/09/19 14:05 Last Admin: 01/09/19 14:22 Dose: 100 ml Methimazole (Methimazole) 5 mg PO DAILY [facility] Last Admin: 01/10/19 09:31 Dose: Not Given Potassium Chloride (Klor-Con M20) 40 meq PO ONETIME ONE Stop: 01/09/19 10:01 Last Admin: 01/09/19 09:38 Dose: 40 meq Vancomycin HCl (Vancomycin) 1 gm IV .PHARMACY TO DOSE [facility] Stop: 01/08/19 13:01 - Exam General: Reports: Alert, Oriented, Cooperative, Mild Distress Lungs: Reports: Decreased Breath Sounds (Right base), Rhonchi, Wheezing Cardiovascular: Reports: Regular Rate, Regular Rhythm, No Murmurs GI/Abdominal Exam: Soft, Non-Tender, No Organomegaly, No Distention Extremities: Non-Tender, No Pedal Edema *Q Meaningful Use (DIS) - VTE *Q VTE Pharmacological Contraindications *Q: Patient Scheduled Surgery
[2019-01-11] MEDS ORDERED: Methimazole 5 MG Tab PO SCH (09:00)
--- NOTE | 2019-01-12 15:04 | OR ---
DATE OF PROCEDURE: 01/09/2019 SURGEON: Ignacio Blackman MD PREOPERATIVE DIAGNOSIS: Recurrent right pleural effusion. POSTOPERATIVE DIAGNOSIS: Recurrent right pleural effusion. OPERATIVE PROCEDURE: Ultrasound-guided right thoracentesis (33265). ANESTHESIA: Local. INDICATION FOR PROCEDURE: This is a 63-year-old female presenting with recurrent right pleural effusion. It is much smaller than the previously evacuated per Dr. Plata, but the patient to undergo a thoracentesis for diagnostic purposes, and we will obtain a CT scan of the chest immediately after the thoracentesis to try to define what other pathology is the underlying cause of the recurrent pleural effusions. Potential risks of the procedure including bleeding, infection, pneumothorax were reviewed, and the patient wishes to proceed. DETAILS OF PROCEDURE: The patient was placed in a sitting position. The right posterolateral chest was then evaluated by ultrasound and location marked for the thoracentesis. That area was prepped and draped, anesthetized with 1% lidocaine, and then thoracentesis catheter placed. 225 mL of bloody fluid with fluid that was clotting was removed, as much fluid as possible was removed, and at that point, the catheter was withdrawn. Fluid will be sent for cultures and cytology, and CT scan with IV contrast was ordered subsequently. Dressing had been applied, and the patient tolerated the procedure well. Ignacio Blackman MD Job #: [id number]
== END 2019-01-10 14:05 | disposition home or self-care (01) | DRG 143 ==
LOC: JP.ICU 11:01 → JP.MS 17:57
PROVIDERS: ADMIT Hospitalist; ATTEND Hospitalist
PROC: 0W994ZZ Drainage of Right Pleural Cavity, Percutaneous Endoscopic Approach (ICD-10-PCS; principal; 2019-01-09)
DX: J90 Pleural effusion, not elsewhere classified (principal); J18.9 Pneumonia, unspecified organism; R91.8 Other nonspecific abnormal finding of lung field; R51 Headache; E05.90 Thyrotoxicosis, unspecified without thyrotoxic crisis or storm; F17.200 Nicotine dependence, unspecified, uncomplicated; Z88.2 Allergy status to sulfonamides; Z88.8 Allergy status to other drugs, medicaments and biological substances; Z79.899 Other long term (current) drug therapy
CPT/HCPCS: 36415; 70553; 71260; 71260-26; 80053; 83735; 84132; 85025; 86140; 87015; 87040; 87070; 87102; 87116; 87205; 87206; 87220; 94762; A9270-GY; A9579; J1170; J2543; J3370; J7030; J7050; Q9967

== ENCOUNTER 2019-01-18 07:11 | Day surgery (SDC) | payer BC ==
[2019-01-18] MEDS ORDERED: Dextrose 5%-Lactated Ringers 1,000 ML IV SCH (08:00)
[2019-01-18] MEDS ORDERED: Lidocaine 2% Viscous Solution 15 ML Cup ONE (08:01)
[2019-01-18] MEDS ORDERED: Lidocaine 4% Top Soln 50 ML Bottle ONE (08:01)
[2019-01-18] MEDS ORDERED: Propofol 200 MG/20 ML SDV ONE (08:44)
[2019-01-18] MEDS ORDERED: fentaNYL 100 MCG/2 ML SDV ONE (08:44)
[2019-01-18] MEDS ORDERED: Midazolam 1 MG/ML 2 ML SDV ONE (08:44)
[2019-01-18] MEDS ORDERED: Lidocaine 4% Top Soln LTA 4 ML Syringe Kit ONE (08:45)
[2019-01-18 11:56] VITALS: BP 107/72; PULSE 88
--- NOTE | 2019-01-22 08:06 | OR ---
DATE OF PROCEDURE: 01/18/2019 SURGEON: Ignacio Blackman MD PREOPERATIVE DIAGNOSIS: Persistent infiltrate versus mass, right middle lobe. POSTOPERATIVE DIAGNOSIS: Persistent infiltrate versus mass, right middle lobe. OPERATIVE PROCEDURES: Flexible bronchoscopy with: 1. Tracheobronchial washings (33806). 2. Bronchoalveolar lavage to the right middle lobe (58181). 3. Brushes to right middle lobe (02524). ANESTHESIA: Topical plus IV sedation. INDICATION FOR PROCEDURE: This is a 63-year-old, recently presenting with mass versus infiltrate of the right middle lobe. She is status post thoracentesis for pleural effusions x2. Both of these showed no evidence of malignant cytology or infectious component. The plan is to proceed with flexible bronchoscopy with biopsies and/or other samplings as indicated. Potential risks including bleeding, infection, aspiration of gastric contents and such were reviewed, and the patient wishes to proceed. DETAILS OF PROCEDURE: The patient was taken to the operating room and placed in a supine position, sitting slightly upward. IV sedation was administered, after which the translaryngeal injection of lidocaine was placed per Anesthesia. Bronchoscope was then passed through the left side of the nose. Visualized nasopharynx and hypopharynx and larynx were unremarkable. Cord motion was symmetrical. Within the trachea, there were no significant secretions or tracheal splaying. The tracheobronchial tree on both sides was essentially normal, other than some slight edema in the middle lobe bronchus, the latter appearing to be very subtle. There were essentially no abnormal secretions present. At this point, diffuse tracheobronchial washings were obtained, and following this then, bronchoalveolar lavage to the right middle lobe was undertaken with injection of 200 mL of saline. This fluid was collected in 2 containers and sent for full workup on each case. Following this, brushes were then placed in both the subsegmental bronchi of the right middle lobe and these were sent separately in Saccomanno solution for cytologic evaluation. The patient was taken to the recovery room and tolerated the procedure well, after removal of the bronchoscope. Plan will be to proceed with a repeat CAT scan of the chest on Tuesday, and we will review that with the radiologist. If we are not seeing some improvement, we would probably try to get a CT-guided needle biopsy, assuming that the exam is not diagnostic. The patient's Gram stain on the BAL specimen did show some gram-positive cocci. Zyvox would be the obvious best choice in this case, which every organism that are gram-positive cocci would be sensitive to, but the co-pay was several hundred dollars, which the patient could not afford, and we would like to get her started on Augmentin 875 mg p.o. b.i.d. with a 10-day supply, and we will check the C and S results over the next 48 hours to see if there is any further fine-tuning of the antibiotics that could be done at that point. Otherwise, we will see her after the CAT scan has been completed on Tuesday. Ignacio Blackman MD /[id number]
== END 2019-01-18 11:50 | disposition home or self-care (01) ==
LOC: JP.SDS 07:11
PROVIDERS: ATTEND Surgery
DX: R91.8 Other nonspecific abnormal finding of lung field (principal); E78.5 Hyperlipidemia, unspecified; E05.00 Thyrotoxicosis with diffuse goiter without thyrotoxic crisis or storm; F17.210 Nicotine dependence, cigarettes, uncomplicated
CPT/HCPCS: 31623; 31624; 36415; 80053; 83735; 84100; 85027; 85610; 85730; 87015; 87070; 87077; 87102; 87116; 87205; 87206; 87220; 88112; 88305; A9270; J2250; J2704; J3010; J7042; J7121